=== PATIENT | male | born 1985 | race Caucasian/White ===

== ENCOUNTER 2025-05-14 18:07 | Emergency (ER) | payer BC, OTHER ==
[2025-05-14 19:02] LABS: BASOPHILS ABSOLUTE AUTO 0.1 K/mm3 (0.0-0.2); BASOPHILS PERCENT AUTO 0.7 % (0.0-1.0); EOSINOPHILS ABSOLUTE AUTO 0.1 K/mm3 (0.0-0.4); EOSINOPHILS PERCENT AUTO 1.6 % (0.0-6.0); IMMATURE GRAN ABSOLUTE AUTO 0.02 K/mm3 (0.00-0.05); IMMATURE GRAN PERCENT AUTO 0.3 % (0.0-0.4); LYMPHOCYTES ABSOLUTE AUTO 2.4 K/mm3 (1.0-4.8); LYMPHOCYTES PERCENT AUTO 32.2 % (24.0-44.0); MEAN PLATELET VOLUME 11.3 fl (9.4-12.4); MONOCYTES ABSOLUTE AUTO 0.6 K/mm3 (0.0-0.8); MONOCYTES PERCENT AUTO 7.3 % (0.0-8.0); NEUTROPHILS ABSOLUTE AUTO 4.4 K/mm3 (1.8-7.7); NEUTROPHILS PERCENT AUTO 57.9 % (41.0-71.0); NRBC ABSOLUTE 0.00 (0.00-0.02); NRBC PERCENT 0.0 % (0.0-0.2); PLATELET COUNT,PLT 207 K/mm3 (150-400); RED BLOOD CELL COUNT 5.84 M/mm3 (4.52-5.90); WHITE BLOOD CELL COUNT,WBC 7.51 K/mm3 (3.9-11.3)
[2025-05-14 19:17] LABS: A/G RATIO 1.2 (1-2); ALANINE AMINOTRANSFERASE,ALT 70.0 U/L (16-63); BILIRUBIN TOTAL 0.4 mg/dL (0.2-1.0); BLOOD UREA NITROGEN,BUN 14.0 mg/dL (7-18); CARBON DIOXIDE,CO2 27.0 mEq/L (21-32); CHLORIDE,CL 105.0 mEq/L (98-107); CREATININE 1.1 mg/dL (0.7-1.3); EST CRCL DRUG DOSING (CG) 94.13 mL/min; ESTIMATED GFR 86.0 mL/min (>60); PROTEIN TOTAL,TP 6.6 g/dl (6.4-8.2); SODIUM,NA 140.0 mEq/L (136-145); TROPONIN I HIGH SENSITIVITY 37.0 pg/mL (<=76)
[2025-05-14 19:35] LABS: ASPARTATE AMNIOTRANSFERASE,AST 64.0 U/L (15-37); GLUCOSE RANDOM 129.0 mg/dL (70-99); POTASSIUM,K 4.0 mEq/L (3.5-5.1)
== END 2025-05-14 21:51 | disposition home or self-care (01) ==
LOC: JD.ED 18:07
DX: R07.89 Other chest pain (principal)
CPT/HCPCS: 36415; 71046; 71046-26; 80053; 84484; 85025; 85379; 93005; 99285